=== PATIENT | female | born 1955 | race Caucasian/White ===

== ENCOUNTER 2021-12-15 14:11 | Inpatient (IN) | payer MEDICARE, BC ==
[~2021-12-15] VITALS: Ht 165.1 cm; Wt 65.2 kg
[2021-12-15] MEDS ORDERED: KETOROLAC TROMETH 30 MG/ML 1ML VIAL IV ONE (14:45)
[2021-12-15] MEDS ORDERED: ONDANSETRON HCL 4 MG/2 ML VIAL IV ONE (14:45)
[2021-12-15] MEDS ORDERED: SODIUM CHLORIDE 0.9% 1,000 ML IVB ONE (14:45)
[2021-12-15 15:10] LABS: Basophils # (auto) 0.1 10 ^3/uL (0-0.2); Basophils % (auto) 1.2 % (0.0-2.0); Eosinophils # (auto) 0.2 10 ^3/uL (0-0.8); Eosinophils % (auto) 1.8 % (0.0-7.0); Hematocrit 40.3 % (36.0-46.0); Hemoglobin 13.6 g/dL (12.2-16.2); Lymphocytes # (auto) 1.8 10 ^3/uL (0.4-5.4); Lymphocytes % (auto) 16.7 % (10.0-50.0); Mean Corpuscular Hemoglobin 29.4 pg (28.0-32.0); Mean Corpuscular Hgb Conc. 33.7 g/dL (32.0-36.0); Mean Corpuscular Volume 87.2 fL (80.0-100.0); Monocytes # (auto) 0.7 10 ^3/uL (0-1.3); Monocytes % (auto) 6.3 % (0.0-12.0); Neutrophils # (auto) 7.9 10 ^3/uL (1.6-8.6); Nucleated Red Blood Cells % 0.1 %; Red Blood Cells 4.62 10^6/uL (4.0-5.20); Red Cell Distribution Width 13.8 % (11.8-14.3); White Blood Cell 10.7 10^3/uL (4.4-10.8)
[2021-12-15 15:28] LABS: Albumin 3.6 g/dL (3.4-5.0); Calcium 9.2 mg/dL (8.5-10.1); Potassium 3.9 mmol/L (3.5-5.1)
[2021-12-15 15:33] LABS: Total Protein 7.3 g/dL (6.4-8.2)
[2021-12-15] MEDS ORDERED: metroNIDAZOLE 500MG/100ML 100 ML IV ONE (16:15)
[2021-12-15 17:00] LABS: BUN/Creatinine Ratio 23.1
[2021-12-15 17:45] LABS: Urine Bacteria NONE SEEN /hpf (None Seen); Urine Blood Negative /uL (Negative); Urine Specific Gravity 1.014 (1.001-1.035); Urine WBC 1 /hpf (0 - 5)
[2021-12-15 20:13] LABS: Cholesterol 177 mg/dL (< 200)
[2021-12-15 20:15] LABS: HDL Cholesterol 79 mg/dL (40-59); LDL Cholesterol 70 mg/dL (< 100); Triglycerides 217 mg/dL (< 150)
[2021-12-15] MEDS ORDERED: SODIUM CHLORIDE 0.9% 1,000 ML IV ONE ×2 (20:30)
[2021-12-15] MEDS ORDERED: ONDANSETRON HCL 4 MG/2 ML VIAL IV PRN (20:30)
[2021-12-15] MEDS ORDERED: MORPHINE SULFATE 4 MG/ML SYR/VIAL IV PRN (20:30)
[2021-12-15] MEDS ORDERED: GEMFIBROZIL 600 MG TAB PO ONE (21:00)
[2021-12-15] MEDS: metroNIDAZOLE 500MG/100ML 100 ML IV SCH (21:42)
[2021-12-15] MEDS: GEMFIBROZIL 600 MG TAB PO SCH (22:11)
[2021-12-15 22:30] VITALS: BP 122/69
[2021-12-16 05:00] VITALS: BP 121/71
[2021-12-16 05:22] LABS: Basophils # (auto) 0.1 10 ^3/uL (0-0.2); Basophils % (auto) 2.1 % (0.0-2.0); Eosinophils # (auto) 0.2 10 ^3/uL (0-0.8); Eosinophils % (auto) 3.8 % (0.0-7.0); Hematocrit 36.6 % (36.0-46.0); Hemoglobin 12.3 g/dL (12.2-16.2); Lymphocytes # (auto) 1.4 10 ^3/uL (0.4-5.4); Lymphocytes % (auto) 22.9 % (10.0-50.0); Mean Corpuscular Hemoglobin 29.3 pg (28.0-32.0); Mean Corpuscular Hgb Conc. 33.5 g/dL (32.0-36.0); Mean Corpuscular Volume 87.6 fL (80.0-100.0); Monocytes # (auto) 0.5 10 ^3/uL (0-1.3); Neutrophils # (auto) 3.9 10 ^3/uL (1.6-8.6); Neutrophils % (auto) 63.2 % (37.0-80.0); Nucleated Red Blood Cells % 0.1 %; Red Blood Cells 4.18 10^6/uL (4.0-5.20); Red Cell Distribution Width 13.8 % (11.8-14.3); White Blood Cell 6.1 10^3/uL (4.4-10.8)
[2021-12-16 05:48] LABS: Albumin 2.9 g/dL (3.4-5.0); BUN/Creatinine Ratio 18.5; Calcium 8.2 mg/dL (8.5-10.1); Potassium 3.5 mmol/L (3.5-5.1)
[2021-12-16 05:50] LABS: Bilirubin, Total 1.2 mg/dL (0.2-1.0); Total Protein 5.7 g/dL (6.4-8.2)
[2021-12-16] MEDS: metroNIDAZOLE 500MG/100ML 100 ML IV SCH ×3 (06:06→21:53)
[2021-12-16 07:51] LABS: Amylase 144 U/L (25-115); Lipase 549 U/L (73-393)
[2021-12-16 08:00] VITALS: BP 139/66
[2021-12-16] MEDS ORDERED: ENOXAPARIN SOD 30 MG/0.3 ML SYRINGE SC SCH (10:00)
[2021-12-16] MEDS: GEMFIBROZIL 600 MG TAB PO SCH (10:40)
[2021-12-16] MEDS: MORPHINE SULFATE INJECTION 2 MG/ML SYRG IV PRN ×2 (10:42→16:02)
[2021-12-16 12:00] VITALS: BP 128/58
[2021-12-16] MEDS ORDERED: traMADol HCL 50 MG TAB PO PRN (14:30)
[2021-12-16] MEDS ORDERED: levoFLOXacin 500MG 100 ML IV ONE (14:30)
[2021-12-16] MEDS: SODIUM CHLORIDE 0.9% 1,000 ML IV SCH (14:37)
[2021-12-16 16:00] VITALS: BP 122/74
[2021-12-16 22:00] VITALS: BP 121/71
[2021-12-17 05:00] VITALS: BP 118/74
[2021-12-17] MEDS: metroNIDAZOLE 500MG/100ML 100 ML IV SCH ×3 (06:04→22:13)
[2021-12-17] MEDS: SODIUM CHLORIDE 0.9% 1,000 ML IV SCH ×2 (06:05→17:10)
[2021-12-17 06:07] LABS: Basophils # (auto) 0.1 10 ^3/uL (0-0.2); Basophils % (auto) 1.1 % (0.0-2.0); Eosinophils # (auto) 0 10 ^3/uL (0-0.8); Eosinophils % (auto) 0.6 % (0.0-7.0); Hematocrit 35.8 % (36.0-46.0); Hemoglobin 11.9 g/dL (12.2-16.2); Lymphocytes # (auto) 0.7 10 ^3/uL (0.4-5.4); Lymphocytes % (auto) 14.5 % (10.0-50.0); Mean Corpuscular Hemoglobin 29.4 pg (28.0-32.0); Mean Corpuscular Hgb Conc. 33.3 g/dL (32.0-36.0); Mean Corpuscular Volume 88.2 fL (80.0-100.0); Monocytes # (auto) 0.3 10 ^3/uL (0-1.3); Monocytes % (auto) 6.2 % (0.0-12.0); Neutrophils % (auto) 77.6 % (37.0-80.0); Red Blood Cells 4.06 10^6/uL (4.0-5.20); Red Cell Distribution Width 13.8 % (11.8-14.3); White Blood Cell 5.1 10^3/uL (4.4-10.8)
[2021-12-17 07:09] LABS: BUN/Creatinine Ratio 12.1; Calcium 7.7 mg/dL (8.5-10.1)
[2021-12-17 09:00] VITALS: BP 132/80
[2021-12-17] MEDS: levoFLOXacin 500MG 100 ML IV SCH (10:27)
[2021-12-17] MEDS ORDERED: POTASSIUM CHL 20 Meq TABLET PO ONE (11:00)
[2021-12-17 12:00] VITALS: BP_SYST 134; BP_SYST 142; BP_DIAS 78; BP_DIAS 79
[2021-12-17] MEDS ORDERED: DULO60CA PO (15:02)
[2021-12-17] MEDS ORDERED: ATO40T PO (15:02)
[2021-12-17] MEDS ORDERED: CYA100I IM (15:02)
[2021-12-17] MEDS ORDERED: MELO1TAB56 PO (15:02)
[2021-12-17] MEDS ORDERED: VENL-194 PO (15:04)
[2021-12-17] MEDS ORDERED: DONE6TAB PO (15:04)
[2021-12-17] MEDS ORDERED: MEMA28CA PO (15:05)
[2021-12-17 16:00] VITALS: BP 133/84
[2021-12-18 00:12] VITALS: BP 134/77
[2021-12-18 05:00] VITALS: BP 124/73
[2021-12-18] MEDS: SODIUM CHLORIDE 0.9% 1,000 ML IV SCH (05:01)
[2021-12-18] MEDS: metroNIDAZOLE 500MG/100ML 100 ML IV SCH ×2 (05:30→13:04)
[2021-12-18 06:33] LABS: Basophils # (auto) 0.1 10 ^3/uL (0-0.2); Eosinophils # (auto) 0.1 10 ^3/uL (0-0.8); Eosinophils % (auto) 1.5 % (0.0-7.0); Hematocrit 39.6 % (36.0-46.0); Hemoglobin 13.5 g/dL (12.2-16.2); Lymphocytes # (auto) 1.6 10 ^3/uL (0.4-5.4); Lymphocytes % (auto) 20.6 % (10.0-50.0); Mean Corpuscular Hemoglobin 29.7 pg (28.0-32.0); Mean Corpuscular Hgb Conc. 34.2 g/dL (32.0-36.0); Mean Corpuscular Volume 86.8 fL (80.0-100.0); Monocytes # (auto) 0.6 10 ^3/uL (0-1.3); Monocytes % (auto) 8.2 % (0.0-12.0); Neutrophils # (auto) 5.4 10 ^3/uL (1.6-8.6); Neutrophils % (auto) 68.7 % (37.0-80.0); Red Blood Cells 4.56 10^6/uL (4.0-5.20); Red Cell Distribution Width 14.1 % (11.8-14.3); White Blood Cell 7.9 10^3/uL (4.4-10.8)
[2021-12-18 06:43] LABS: Albumin 3.1 g/dL (3.4-5.0); Calcium 8.6 mg/dL (8.5-10.1); Potassium 3.6 mmol/L (3.5-5.1)
[2021-12-18 06:47] LABS: BUN/Creatinine Ratio 14.7; Total Protein 6.3 g/dL (6.4-8.2)
[2021-12-18 09:00] VITALS: BP 137/79
[2021-12-18] MEDS: levoFLOXacin 500MG 100 ML IV SCH (09:49)
[2021-12-18] MEDS ORDERED: VENLAFAXINE HCL 37.5MG TABLET PO SCH (10:00)
[2021-12-18] MEDS ORDERED: LEVO500T31 PO (12:58)
[2021-12-18] MEDS ORDERED: METR500T PO (12:58)
[2021-12-18 13:17] VITALS: BP 126/72
== END 2021-12-18 16:13 | disposition home health service (06) | DRG 391 ==
LOC: ER 14:11 → OVERFLOW 20:23 → WEST WING 22:15
PROVIDERS: ADMIT Registered Nurse; ATTEND Internal Medicine
DX: K57.32 Diverticulitis of large intestine without perforation or abscess without bleeding (principal); K85.90 Acute pancreatitis without necrosis or infection, unspecified; E78.5 Hyperlipidemia, unspecified; F02.80 Dementia in other diseases classified elsewhere, unspecified severity, without behavioral disturbance, psychotic disturbance, mood disturbance, and anxiety; G30.9 Alzheimer's disease, unspecified; N18.2 Chronic kidney disease, stage 2 (mild); Z20.822 Contact with and (suspected) exposure to COVID-19; F32.A Depression, unspecified; M19.90 Unspecified osteoarthritis, unspecified site; Z91.013 Allergy to seafood; Z90.49 Acquired absence of other specified parts of digestive tract; Z83.3 Family history of diabetes mellitus; Z98.51 Tubal ligation status
CPT/HCPCS: 36415; 74176; 76705; 80048; 80053; 80061; 81001; 82150; 82270; 83690; 83880; 85025; 96361; 96365; 96375; G0378; J1885; J1956; J2405; J3490

== ENCOUNTER 2022-01-15 13:13 | Emergency (ER) | payer MEDICARE, BC ==
[~2022-01-15] VITALS: Ht 162.6 cm; Wt 63.5 kg
[~2022-01-15 13:13] MED LIST: ATO40T PO; CYA100I IM; DONE6TAB PO; DULO60CA PO; LEVO500T31 PO; MELO1TAB56 PO; MEMA28CA PO; METR500T PO; VENL-194 PO
[2022-01-15 14:54] LABS: Basophils # (auto) 0.2 10 ^3/uL (0-0.2); Basophils % (auto) 1.8 % (0.0-2.0); Eosinophils # (auto) 0.2 10 ^3/uL (0-0.8); Eosinophils % (auto) 2.2 % (0.0-7.0); Hematocrit 43.8 % (36.0-46.0); Hemoglobin 14.7 g/dL (12.2-16.2); Lymphocytes # (auto) 2.1 10 ^3/uL (0.4-5.4); Lymphocytes % (auto) 25.7 % (10.0-50.0); Mean Corpuscular Hemoglobin 29.6 pg (28.0-32.0); Mean Corpuscular Hgb Conc. 33.5 g/dL (32.0-36.0); Mean Corpuscular Volume 88.2 fL (80.0-100.0); Monocytes # (auto) 0.6 10 ^3/uL (0-1.3); Monocytes % (auto) 7.3 % (0.0-12.0); Neutrophils # (auto) 5.1 10 ^3/uL (1.6-8.6); Red Blood Cells 4.96 10^6/uL (4.0-5.20); Red Cell Distribution Width 14.7 % (11.8-14.3); White Blood Cell 8.2 10^3/uL (4.4-10.8)
[2022-01-15 15:16] LABS: Potassium 4.3 mmol/L (3.5-5.1)
[2022-01-15 15:21] LABS: Albumin 3.9 g/dL (3.4-5.0); BUN/Creatinine Ratio 25.3; Calcium 9.6 mg/dL (8.5-10.1)
[2022-01-15 15:24] LABS: Bilirubin, Total 1.1 mg/dL (0.2-1.0); Total Protein 7.7 g/dL (6.4-8.2)
[2022-01-15 16:31] LABS: Urine Bacteria FEW /hpf (None Seen); Urine Blood Negative /uL (Negative); Urine Hyaline Cast FEW /lpf (0 - 2); Urine Mucus FEW (None Seen); Urine Specific Gravity 1.031 (1.001-1.035); Urine WBC 1 /hpf (0 - 5)
[2022-01-15] MEDS ORDERED: HYDROcodone-ACET 5/325MG TAB PO ONE (18:45)
[2022-01-15] MEDS ORDERED: KETOROLAC TROMETH 30 MG/ML 1ML VIAL IM ONE (19:00)
[2022-01-15 21:37] VITALS: BP 120/82
== END 2022-01-15 21:34 | disposition home or self-care (01) ==
LOC: ER 13:13
DX: G89.29 Other chronic pain (principal); M54.50 Low back pain, unspecified; R94.31 Abnormal electrocardiogram [ECG] [EKG]; Z98.51 Tubal ligation status; Z91.013 Allergy to seafood
CPT/HCPCS: 36415; 74176; 80053; 81001; 83605; 83690; 84484; 85025; 93005; 96372; 99285; J1885